=== PATIENT | female | born 1960 | race Caucasian/White ===

== ENCOUNTER 2018-10-21 18:51 | Emergency (ER) | payer OTHER, MEDICAID ==
--- NOTE | 2018-10-21 19:16 | EDPHY ---
H & P Time Seen by Provider: 10/21/18 19:16 HPI/ROS: Chief complaint. Blurry vision HPI. 58-year-old female presents emergency department with blurry vision for 5 days. 5 days ago she knows blurry vision in the right eye on the right lateral gaze. It lasted around 10 min. 4 days ago she developed floaters to the right lower gaze lasting about 10 min. No symptoms yesterday. Today flow to the left eye lasting about 10 min and then again floater to the right eye lasting about 10 min. She wears glasses. No contact lens. No previous eye surgery. She has a history of hypothyroidism and in mid August she had her Synthroid L of ROS 10 systems were reviewed and negative with the exception of the elements mentioned in the history of present illness Past Medical/Surgical History: Lyme disease Social History: Single, nonsmoker, no alcohol Smoking Status: Never smoked Physical Exam: General Appearance: Alert pleasant well-developed female mild distress vitals are stable Eyes: Pupils equal and round no pallor or injection. Extraocular movements are intact. Funduscopic exam is unremarkable. ENT, Mouth: Mucous membranes are moist. Respiratory: There are no retractions, lungs are clear to auscultation. Cardiovascular: Regular rate and rhythm. Gastrointestinal: Abdomen is soft and nontender, no masses, bowel sounds normal. Neurological: Awake and alert, sensory and motor exams grossly normal. Skin: Warm and dry, no rashes. Musculoskeletal: Neck is supple nontender. Extremities symmetrical, full range of motion. Psychiatric: Patient is oriented X 3, there is no agitation. Constitutional: Initial Vital Signs Temperature (C) 36.6 C 10/21/18 18:59 Heart Rate 83 10/21/18 18:59 Respiratory Rate 16 10/21/18 18:59 Blood Pressure 127/86 H 10/21/18 18:59 O2 Sat (%) 94 10/21/18 18:59 O2 Delivery Mode Room Air Allergies/Adverse Reactions: No Known Allergies Allergy (Unverified 10/21/18 18:59) Home Medications: Medication Instructions Recorded [employer] Thyroid 10/21/18 Medical Decision Making Procedures: Visual acuity shows each eye 20/25. 20/20 together. This is with corrective lenses Eye is examined under slit lamp by me with fluorescein. There is no fluorescence. The anterior chamber appears normal. No evidence for corneal abrasion or globe perforation ED Course/Re-evaluation: I consulted discussed the case with Dr. Federico ruiz for Ophthalmology who will see the patient in the office tomorrow morning I discussed this plan with the patient. She expresses understanding and agreement Differential Diagnosis: Considered corneal abrasion, ulcer, hyphema. Likely the patient has a vitreous hemorrhage. Nothing to suggest intracranial pathology - Data Points Medications Given: Discontinued Medications Proparacaine HCl (Alcaine 0.5%) 1 drops EACHEYE ONCE ONE Stop: 10/21/18 19:43 Last Admin: 10/21/18 19:48 Dose: 1 drop Departure - Departure Disposition: Home, Routine, Self-Care Clinical Impression: Visual changes Condition: Good Instructions: Blurred Vision (ED) Additional Instructions: Return tonight for worsening symptoms. Call Dr. Bill tomorrow morning to be seen in the office tomorrow morning Referrals: Mitali Felder MD [Primary Care Provider] - As per Instructions SOLO BILL [Non Staff Provider ()] - 1 day without fail
[2018-10-21] MEDS ORDERED: PROPARACAINE 0.5% 15 ML OPHT DROP EACHEYE ONE (19:42)
[2018-10-21] MEDS ORDERED: FLUORESCEIN SODIUM 1 MG STRIP OP ONE (19:45)
[2018-10-21 20:58] VITALS: BP 111/75
== END 2018-10-21 21:12 | disposition home or self-care (01) ==
DX: H53.9 Unspecified visual disturbance (principal)